=== PATIENT | male | born 1995 | race Caucasian/White ===

== ENCOUNTER → 2024-01-26 12:27 | Outpatient (CLI) | payer OTHER, SELFPAY ==
--- NOTE | 2024-01-26 12:32 | DI.MRI.S_ITS ---
PROCEDURE: MR LUMBAR SPINE WO CON INDICATIONS: sciatica, BILATERAL TECHNIQUE: Noncontrast sagittal T1 spin echo and T2 fast echo, sagittal STIR, and T2 fast spin echo through the lumbar spine. In cases with scoliosis, additional coronal T2 fast spin echo may be performed. COMPARISON: [facility], CR, XR LUMBAR SPINE 2 OR 3 VIEWS, 10/21/2023, 9:48. FINDINGS: Image quality: Excellent. 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 It will still be labeled as L1 for the purposes of this dictation. There is normal bony alignment. Bone Marrow: Marrow is of normal overall signal. No acute vertebral body compression fractures. Spinal Cord: Conus medullaris terminates at the L1-L2 level. Visualized cord demonstrates normal signal and size. Paraspinous Soft Tissues: No paravertebral masses. T12-L1: Normal appearance. L1-L2: Normal appearance. L2-L3: Normal appearance. L3-L4: Mild facet hypertrophy. No canal stenosis or foraminal stenosis. L4-L5: Mild chronic disc height loss. Congenitally short pedicles. Broad-based left paracentral disc protrusion which impinges on the left L5 nerve root in the left lateral recess. Reference axial T2 image 26 of series 5. There is mild central canal stenosis. Facet hypertrophy. No foraminal stenosis. L5-S1: Chronic moderately severe disc height loss. Moderate broad-based central posterior disc protrusion which somewhat impinges on the left S1 nerve root in left lateral recess. It also abuts the right S1 nerve root in the right lateral recess. Reference axial T2 image 31 of series 5. Facet hypertrophy. There is mild central canal stenosis. No foraminal stenosis. IMPRESSION: 1. 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 If surgery is contemplated in this patient, careful correlation for correct surgical level is required. 2. Given the numbering system utilized in this dictation, significant findings are present at L4-L5 and L5-S1. 3. At L4-L5, a left paracentral disc protrusion impinges on the left L5 nerve root in the left lateral recess and results in mild central canal stenosis. 4. At L5-S1, a broad-based posterior disc protrusion mildly impinges on the left S1 nerve root in the left lateral recess, results in mild central canal stenosis, and abuts the right S1 nerve root in the right lateral recess. Dictated by: Angelo Kaminski M.D. on 01/26/2024 at 15:40 Approved by: Angelo Kaminski M.D. on 01/26/2024 at 15:55
== END ==
LOC: MRI 12:31
PROVIDERS: PCP Family Medicine; Referring Provider Family Medicine; Visit Provider Family Medicine
DX: M54.42 Lumbago with sciatica, left side (principal); M54.41 Lumbago with sciatica, right side; M51.26 Other intervertebral disc displacement, lumbar region; M48.061 Spinal stenosis, lumbar region without neurogenic claudication; M51.27 Other intervertebral disc displacement, lumbosacral region; M48.07 Spinal stenosis, lumbosacral region
CPT/HCPCS: 72148